=== PATIENT | male | born 1970 | race Caucasian/White ===

== ENCOUNTER → 2018-03-28 | Outpatient (CLI) | payer BC ==
[~2018-03-28] MED LIST: IOPAMIDOL (ISOVUE 370) 100 ML BTL IV ONE; IOPAMIDOL (ISOVUE-370) 150 ML BTL IV ONE
== END ==
LOC: CIMAGING 08:34
PROVIDERS: ATTEND Family Medicine
DX: R31.9 Hematuria, unspecified (principal); N20.0 Calculus of kidney; D18.09 Hemangioma of other sites
CPT/HCPCS: 74177-PO; Q9967

== ENCOUNTER → 2018-08-09 | Outpatient (CLI) | payer BC | LOC: CIMAGING 15:15 ==